=== PATIENT | male | born 1970 | race Caucasian/White ===

== ENCOUNTER 2019-06-12 13:43 | Emergency (ER) | payer OTHER ==
[~2019-06-12] VITALS: Ht 182.9 cm; Wt 136.1 kg
[~2019-06-12 13:43] MED LIST: NORCO 7.5-3251 EACH PO
[2019-06-12] MEDS ORDERED: LISINOPRIL-HCT1 EACH PO (14:05)
[2019-06-12] MEDS ORDERED: LIPITOR10 MG PO (14:06)
[2019-06-12] MEDS ORDERED: NAPROSYN500 MG PO (14:06)
[2019-06-12] MEDS ORDERED: FLEXERIL PO (14:06)
[2019-06-12] MEDS ORDERED: NORCO 5-325 TA1 EAC1 PO (14:42)
[2019-06-12] MEDS ORDERED: IBUPROFEN 800800 M1 PO (14:42)
[2019-06-12] MEDS ORDERED: MEDROLDOSEPACK PO (14:42)
[2019-06-12 15:49] VITALS: BP 153/74
== END 2019-06-12 15:52 | disposition home or self-care (01) ==
LOC: M.ERS 13:43
DX: S16.1XXA Strain of muscle, fascia and tendon at neck level, initial encounter (principal); M75.41 Impingement syndrome of right shoulder; M54.6 Pain in thoracic spine; I10 Essential (primary) hypertension; E78.00 Pure hypercholesterolemia, unspecified; F17.210 Nicotine dependence, cigarettes, uncomplicated; X58.XXXA Exposure to other specified factors, initial encounter; Y93.89 Activity, other specified; Y92.89 Other specified places as the place of occurrence of the external cause; Y99.8 Other external cause status